=== PATIENT | female | born 1985 | race Hispanic/Latino ===

== ENCOUNTER 2017-11-24 18:56 | Emergency (ER) | payer OTHER ==
[2017-11-24 19:07] VITALS: O2SAT 100
--- NOTE | 2017-11-24 20:10 | ED PDOC ---
HPI: Chest Pain Time Seen by Provider: 11/24/17 19:21 Chief Complaint (Nursing): Chest Pain Chief Complaint (Provider): chest pain History Per: Patient History/Exam Limitations: no limitations Onset/Duration Of Symptoms: Hrs (10), Waxing/Waning Current Symptoms Are (Timing): Still Present Quality: Pressure Modifying Factors: None Exacerbating Factors: None Additional Complaint(s): 32 y/o female presents for evaluation of intermittent chest pressure x 10 hours. Patient states symptoms started in her throat, and then traveled down to chest and epigastric area, and then seemed to settle in her chest since then. Denies fever, nausea/vomiting, cough, congestion, shortness of breath, palpitations, leg pain/swelling, recent travel. Patient was evaluated by Urgent care earlier today and had a normal EKG and chest xray and was advised to come to ED for further evaluation. Past Medical History Reviewed: Historical Data, Nursing Documentation, Vital Signs Vital Signs: Last Vital Signs Temp 97.6 F 11/24/17 19:03 Pulse 49 L 11/24/17 19:57 Resp 18 11/24/17 19:03 BP 107/68 11/24/17 19:03 Pulse Ox 100 11/24/17 20:10 - Medical History PMH: No Chronic Diseases - Surgical History Surgical History: No Surg Hx - Family History Family History: States: No Known Family Hx - Living Arrangements Living Arrangements: Alone - Social History Current smoker - smoking cessation education provided: No Alcohol: None Drugs: Denies - Allergies Allergies/Adverse Reactions: Allergies Allergy/AdvReac Type Severity Reaction Status Date / Time No Known Allergies Allergy Verified 11/24/17 19:03 Review of Systems ROS Statement: Except As Marked, All Systems Reviewed And Found Negative Cardiovascular: Positive for: Chest Pain Gastrointestinal: Positive for: Abdominal Pain Physical Exam - Reviewed Nursing Documentation Reviewed: Yes Vital Signs Reviewed: Yes - Physical Exam Appears: Positive for: Well, Non-toxic, No Acute Distress Head Exam: Positive for: ATRAUMATIC, NORMAL INSPECTION, NORMOCEPHALIC Skin: Positive for: Normal Color Eye Exam: Positive for: Normal appearance ENT: Positive for: Normal ENT Inspection Cardiovascular/Chest: Positive for: Regular Rate, Rhythm Respiratory: Positive for: Normal Breath Sounds Gastrointestinal/Abdominal: Positive for: Bowel Sounds, Soft, Tenderness ( epigastric) Back: Positive for: Normal Inspection Extremity: Positive for: Normal ROM Neurologic/Psych: Positive for: Alert, Oriented - Laboratory Results Result Diagrams: 11/24/17 21:09 11/24/17 21:09 - ECG ECG: Positive for: Viewed By Me (reviewed by ED attending) ECG Rhythm: Positive for: Sinus Bradycardia (49bpm) O2 Sat by Pulse Oximetry: 100 - Progress ED Course And Treament: labs, ekg, trial IV pepcid On re-eval, patient states she is feeling better. Patient educated on findings, discharged with instructions to follow up PMD 2-3 days. Return precautions given Disposition - Clinical Impression Clinical Impression: Atypical chest pain - Patient ED Disposition Is Patient to be Admitted: No Counseled Patient/Family Regarding: Studies Performed, Diagnosis, Need For Followup - Disposition Referrals: Jason March MD [Staff Provider] - [facility] [Outside] Disposition: Routine/Home Disposition Time: 22:05 Condition: IMPROVED Instructions: Chest Pain Forms: [employer] ([place])
[2017-11-24] MEDS ORDERED: Famotidine 20mg/50ml 20 MG/50 ML BAG IVPB ONE ×2 (20:30→20:52)
[2017-11-24 21:13] LABS: BASO # 0.1 K/uL (0.0-0.2); BASO % 0.8 % (0.0-2.0); EOS % 0.6 % (0.0-4.0); HEMOGLOBIN 12.8 g/dL (12.0-16.0); LYMPH # 2.7 K/uL (1.0-4.3); LYMPH % 39.2 % (20.0-40.0); MEAN CELL VOLUME 85.7 fl (81.0-99.0); MEAN CORPUSCULAR HEMOGLOBIN 28.7 pg (27.0-31.0); MEAN CORPUSCULAR HGB CONC 33.4 g/dL (33.0-37.0); MEAN PLATELET VOLUME 8.5 fl (7.2-11.7); MONO # 0.5 K/uL (0.0-0.8); NEUT # 3.6 K/uL (1.8-7.0); NEUT % 52.4 % (50.0-75.0); NRBC % 0.1 % (0.0-0.0); RBC 4.47 Mil/uL (3.80-5.20); RED CELL DISTRIBUTION WIDTH 13.1 % (11.5-14.5); WHITE BLOOD COUNT 6.9 K/uL (4.8-10.8)
[2017-11-24 21:24] LABS: ALB/GLOB RATIO 1.3 (1.0-2.1); ALBUMIN 4.2 g/dL (3.5-5.0); ALT/SGPT 33 U/L (9-52); AST/SGOT 23 U/L (14-36); BLOOD UREA NITROGEN 10 mg/dl (7-17); CALCIUM 9.4 mg/dL (8.4-10.2); GFR AFRICAN-AMERICAN > 60; GFR NON-AFRICAN AMERICAN > 60; LIPASE 96 U/L (23-300)
[2017-11-24 22:11] VITALS: BP 100/58; PULSE 68; RESP 16
[2017-11-24 22:17] VITALS: TEMP 98.5
--- NOTE | 2017-11-25 17:19 | CARD ---
APPROVED REPORT EKG Measurement Heart [id number] <Conclusion> Sinus bradycardia Otherwise normal ECG
== END 2017-11-24 22:35 | disposition home or self-care (01) ==
LOC: H.ER 18:56
DX: R07.89 Other chest pain (principal)
CPT/HCPCS: 80053; 81025; 83690; 84484; 85025; 93005; 96374; 96375; 99284; J2405